=== PATIENT | male | born 1930 | race Caucasian/White ===

== ENCOUNTER → 2016-09-17 | Outpatient (CLI) | payer OTHER ==
[~2016-09-17] MED LIST: /AMLO25TA PO; /WARF25TA PO; ANEX7.5T PO; CALC500C2 PO; CLAR10CA3 PO; DRIS1CAP PO; ISOVUE-370 76% 100ML VIAL (Q9967) As Ordered ONE; LISI20TA3 PO; VITA10002 PO; folate PO
--- NOTE | 2016-09-17 15:13 | REP ---
CT STUDY OF THE SOFT TISSUES OF THE NECK WITH IV CONTRAST: HISTORY: Vocal cord and larynx polyp. CT contrast dose: 75 mL of Isovue [address] FINDINGS: There is a large mucous retention cyst in the right maxillary sinus. This measures 3.5 cm in greatest diameter. There is some mucosal thickening in the left sphenoid sinus. Carotid artery vascular calcification is noted. There are some missing maxillary and mandibular teeth. Periodontal radiolucent changes are seen in several mandibular teeth. No other bony destructive lesion is seen. There are degenerative changes in the cervical spine. There are scattered nonenlarged lymph nodes. A right submandibular lymph node is seen measuring 7 mm in short axis dimension. There is a right submandibular lymph node measuring 14 mm x 11 mm x 14 mm. This has a somewhat lucent center. Tongue base, floor of mouth structures are unremarkable. Submandibular and parotid glands are intact. Epiglottis and aryepiglottic folds are normal in appearance. There is some irregularity in the left true and false vocal cord consistent with polyp change. This should be correlated with endoscopic findings. No subglottic airway lesion is seen. The lung apices are clear with some apical pleuroparenchymal fibrosis and bullous change. There is no evidence of subhyoid adenopathy on either side. The thyroid lobes are small and thin but symmetric. Vascular calcifications noted. No other vascular abnormality is seen. IMPRESSION: 1. 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 2. Somewhat worrisome 1.4 cm right submandibular lymph node. Impaired dentition noted with periodontal radiolucency in the anterior and right mandible and in the anterior maxilla. 3. 3.5 cm mucous retention cyst in the right maxillary sinus. Signed by Shun dAair MD 09/17/2016 03:19 P
== END ==
LOC: M RAD 13:59
PROVIDERS: ATTEND Otolaryngology
DX: J38.1 Polyp of vocal cord and larynx (principal); R59.9 Enlarged lymph nodes, unspecified; J34.1 Cyst and mucocele of nose and nasal sinus
CPT/HCPCS: 70491; Q9967

== ENCOUNTER → 2016-10-07 | Outpatient (REF) | payer OTHER ==
[~2016-10-07] MED LIST changes: +AMLO10TA2 PO; +BUPR1TAB17 PO; +FERR32TA PO; +FOLI1TAB2 PO; -ISOVUE-370 76% 100ML VIAL (Q9967) As Ordered ONE; +LISI20TA PO; +LORA10TA2 PO; +VITA500T3 PO; +procrit IM
[2016-10-07 13:48] LABS: FOLATE > 24.0 NG/ML (>5.4); VITAMIN B12 LEVEL 757 PG/ML (247-911)
[2016-10-08 10:16] LABS: ERYTHROPOIETIN 31.8 mIU/mL (2.6-18.5)
== END ==
LOC: M LAB REF 12:22
PROVIDERS: ATTEND Internal Medicine Medical Oncology
DX: D64.9 Anemia, unspecified (principal)

== ENCOUNTER → 2016-10-14 | Day surgery (SDC) | payer OTHER ==
[~2016-10-14] VITALS: Ht 177.8 cm; Wt 63.5 kg
[~2016-10-14] MED LIST changes: +CEPACOL LOZENGE As Ordered ONE; +CEPACOL LOZENGE PO ONE; +EPINEPHrine 1MG/ML INJ 30ML MD-VIAL As Ordered ONE; +ETOMIDATE INJ 20MG/10ML VIAL As Ordered ONE; +GLYCOPYRROLATE INJ 0.2 MG/ML 2 ML VIAL As Ordered ONE; +LEVALBUTEROL 1.25 MG/0.5 ML CONCENTRATE NEB As Ordered ONE; +LEVALBUTEROL 1.25 MG/0.5 ML CONCENTRATE NEB INH ONE; +LIDOCAINE 2% INJ 100 MG/5 ML SDV (FOR ANES.) As Ordered ONE; +LR 1,000 ML IV ONE; +LR 1,000 ML IV SCH; +NEOSTIGMINE 1MG/ML 5 ML SYRINGE (J2710) As Ordered ONE; +ONDANSETRON 4MG/2ML VIAL (J2405) As Ordered ONE; +ONDANSETRON 4MG/2ML VIAL (J2405) IV PRN; +PROPOFOL 200 MG/20 ML VIAL As Ordered ONE; +ROCURONIUM BROMIDE 50 MG/5 ML VIAL As Ordered ONE; +dexameTHASONE 4 MG/ML 1ML VIAL (J1100) As Ordered ONE; +fentaNYL 100 MCG/2 ML INJECTION (J3010) As Ordered ONE; +fentaNYL 100 MCG/2 ML INJECTION (J3010) IV PRN
[2016-10-14 13:04] VITALS: BP 123/54
--- NOTE | 2016-10-16 12:10 | RO ---
DATE OF PROCEDURE: 10/14/2016 PREOPERATIVE DIAGNOSES: 1. Left laryngeal mass. 2. Carious tooth, lower mandibular sizer. POSTOPERATIVE DIAGNOSES: 1. Left laryngeal mass. 2. Carious tooth, lower mandibular incisor. PROCEDURE: 1. Extraction of mandibular incisor. 2. Direct laryngoscopy cervical esophagoscopy with biopsy of left vocal cord mass. SURGEON: Jake Griffin MD VARNISH INSPECTOR: ANESTHESIA: INDICATIONS: This is an 86-year-old that has been smoking all his life. He presents with increased . Office examination demonstrated what appeared to be a mass covering two-thirds of the left vocal fold extending up the vestibule to the false cord but not onto the false cord. Vocal cord mobility seemed to be present but perhaps somewhat sluggish. Because of smoking history, we suspect this was a neoplasm. DESCRIPTION OF PROCEDURE: Satisfactory general endotracheal anesthesia administered using a small endotracheal tube. Preparation for the endoscopy. He had a very loose carious tooth in the mandibular incisor area. This was grasped with an Allis clamp and removed very easily. This facilitated the endoscopy, a tooth protector was then placed over his remaining upper teeth. Double lighted Dedo laryngoscope was inserted in the oropharynx. Inspection of the oropharynx, hypopharynx, base of tongue, vallecula, piriform fossa was performed. No lesion was seen. The scope was then advanced to the glottic vestibule and then suspended with the Lewy apparatus. It was apparent there was an exophytic mass covering the left vocal fold superiorly extending on top of the cord into the glottic vestibule and ventricle. Several large biopsies were taken of this area. Bleeding was controlled with small pledgets of adrenaline placed on the vocal cord. Suspicion was this was a malignancy. With that in mind, cervical esophagoscope was prepared for inspection. The Dedo laryngoscope was removed after pictures were taken. Then, the cervical esophagoscope was lubricated and inserted in the postcricoid region and in the cervical esophagus. No lesions were found in the upper esophagus. Throat was suctioned. Patient was then awakened, extubated and sent to recovery room in satisfactory condition. He will be discharged home. Followup in the office within a week to discuss results.
== END | disposition home or self-care (01) ==
LOC: M SDC 08:50
PROVIDERS: ATTEND Specialist
DX: C32.8 Malignant neoplasm of overlapping sites of larynx (principal); K02.9 Dental caries, unspecified; I10 Essential (primary) hypertension; K21.9 Gastro-esophageal reflux disease without esophagitis; Z88.0 Allergy status to penicillin; D64.9 Anemia, unspecified; J44.9 Chronic obstructive pulmonary disease, unspecified; F17.210 Nicotine dependence, cigarettes, uncomplicated
CPT/HCPCS: 31535; 41899; 88300; 88305; J1100; J2405; J2710; J3010

== ENCOUNTER → 2016-11-11 | Outpatient (CLI) | payer OTHER ==
[~2016-11-11] MED LIST changes: -CEPACOL LOZENGE As Ordered ONE; -CEPACOL LOZENGE PO ONE; -EPINEPHrine 1MG/ML INJ 30ML MD-VIAL As Ordered ONE; -ETOMIDATE INJ 20MG/10ML VIAL As Ordered ONE; -GLYCOPYRROLATE INJ 0.2 MG/ML 2 ML VIAL As Ordered ONE; -LEVALBUTEROL 1.25 MG/0.5 ML CONCENTRATE NEB As Ordered ONE; -LEVALBUTEROL 1.25 MG/0.5 ML CONCENTRATE NEB INH ONE; -LIDOCAINE 2% INJ 100 MG/5 ML SDV (FOR ANES.) As Ordered ONE; -LR 1,000 ML IV ONE; -LR 1,000 ML IV SCH; -NEOSTIGMINE 1MG/ML 5 ML SYRINGE (J2710) As Ordered ONE; -ONDANSETRON 4MG/2ML VIAL (J2405) As Ordered ONE; -ONDANSETRON 4MG/2ML VIAL (J2405) IV PRN; -PROPOFOL 200 MG/20 ML VIAL As Ordered ONE; -ROCURONIUM BROMIDE 50 MG/5 ML VIAL As Ordered ONE; -dexameTHASONE 4 MG/ML 1ML VIAL (J1100) As Ordered ONE; -fentaNYL 100 MCG/2 ML INJECTION (J3010) As Ordered ONE; -fentaNYL 100 MCG/2 ML INJECTION (J3010) IV PRN
--- NOTE | 2016-11-20 17:03 | REP ---
Whole body PET / CT scan: Whole-body scanning is performed from skull base to the upper thighs. Comparison is the CT of the neck dated or 05/27/2017. Neck and supraclavicular. There is a hypermetabolic focus in the larynx in the area of the vocal cords. I cannot determine on the PET CT scan whether this is related to the right or the left focal cord. Maximal standard uptake value is 4.47, compatible with neoplasm. There are no other hypermetabolic foci in the neck or supraclavicular areas. Chest: There are no hypermetabolic foci. Abdomen, pelvis and upper thighs: There are no hypermetabolic foci. There is nonspecific bowel uptake. Impression: There is a single hypermetabolic focus in the vocal cords. There are no other hypermetabolic foci. The study is performed with 10 mCi of F 18 FDG Signed by Tad Eldridge MD 11/20/2016 04:54 P
== END ==
LOC: M PLARAD 09:25
PROVIDERS: ATTEND Internal Medicine Medical Oncology
DX: C76.0 Malignant neoplasm of head, face and neck (principal); C32.0 Malignant neoplasm of glottis
CPT/HCPCS: 78815; A9552

== ENCOUNTER → 2016-11-19 | Outpatient (CLI) | payer OTHER | LOC: M PLARAD 08:09 | PROVIDERS: ATTEND Internal Medicine Medical Oncology | DX: C32.0 Malignant neoplasm of glottis (principal) | CPT/HCPCS: 78815; A9552 ==

== ENCOUNTER → 2016-12-18 | Outpatient (CLI) | payer OTHER ==
[~2016-12-18] MED LIST changes: -BUPR1TAB17 PO; +BUPR1TAB53 PO; -FOLI1TAB2 PO; +FOLI1TAB4 PO
--- NOTE | 2016-12-18 15:01 | RADONC ---
RADIATION ONCOLOGY CONSULTATION NOTE DATE: 12/18/2016 CHART NUMBER: DIAGNOSIS: Glottic cancer. Mr. Tucker presented to us today having been referred to us by Dr. Griffin. 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 The patient came in today explaining that he does not wish to undergo radiation. He reports that at 86 years old he has to of something. He lives in [place] and does not have any intention of commuting on a daily basis for treatment over 7 weeks. In addition, the patient spoke of his who underwent radiation at a different center and had a horrific time following completion of treatment. He reported that her quality of life was ruined for the short remainder of her time on earth. In light of this, I did briefly explain the logistics of treatment planning, the benefits and side effects of treatment. I explained to him that the standard of care for glottic squamous cell carcinoma is radiation and that his cure rate would be exceedingly high should he choose to undergo treatment. Since the patient is refusing any consideration of treatment at this time, I have given him as a business card with our phone number on it. I have informed him that I am more than glad to see him at anytime should he change his mind. Once again, we are available to this very pleasant gentleman should he decide he wants to reconsider radiation. Mr. Tucker is a patient of Dr. Mojica, our medical oncologist, and has been discussing various other therapies. I will defer to Dr. Mojica's expertise, he is an excellent medical oncologist, and I am sure the patient is in good hands under his care. Once again in summary, the patient will continue being followed by Dr. Mojica as well as Dr. Griffin. He has been informed that we are more than glad to consider radiation in the future should he so desire. cc: MD Shruti Saravia MD
== END ==
LOC: M ONCR 13:06
PROVIDERS: ATTEND Radiology Radiation Oncology
DX: C32.0 Malignant neoplasm of glottis (principal)

== ENCOUNTER → 2017-01-13 | Outpatient (REF) | payer OTHER ==
[2017-01-13 16:09] LABS: THYROXINE (T4) 6.9 UG/DL (4.5-12.0)
== END ==
LOC: M LAB REF 13:08
PROVIDERS: ATTEND Internal Medicine Medical Oncology
DX: D53.9 Nutritional anemia, unspecified (principal)

== ENCOUNTER → 2017-03-09 | Outpatient (REF) | payer OTHER | LOC: M LAB REF 13:19 | PROVIDERS: ATTEND Internal Medicine Medical Oncology | DX: D46.9 Myelodysplastic syndrome, unspecified (principal); C32.0 Malignant neoplasm of glottis; Z79.899 Other long term (current) drug therapy ==

== ENCOUNTER → 2017-04-21 | Outpatient (REF) | payer OTHER ==
[2017-04-21 16:18] LABS: FREE T4 1.17 NG/DL (0.76-1.46)
== END ==
LOC: M LAB REF 15:36
PROVIDERS: ATTEND Internal Medicine Medical Oncology
DX: C32.9 Malignant neoplasm of larynx, unspecified (principal); D46.9 Myelodysplastic syndrome, unspecified; Z79.899 Other long term (current) drug therapy

== ENCOUNTER → 2017-05-06 | Outpatient (REF) | payer OTHER ==
[2017-05-06 20:29] LABS: FREE T4 1.08 NG/DL (0.76-1.46)
== END ==
LOC: M LAB REF 17:56
PROVIDERS: ATTEND Internal Medicine Medical Oncology
DX: D64.9 Anemia, unspecified (principal); C32.0 Malignant neoplasm of glottis; D46.9 Myelodysplastic syndrome, unspecified

== ENCOUNTER 2017-05-20 09:03 | Outpatient (CLI) | payer OTHER, MEDICARE ==
[~2017-05-20 09:03] MED LIST changes: +ACETAMINOPHEN TAB 650MG DOSE (2X325MG) PO SCH; +diphenhydrAMINE 25 MG CAP PO SCH
== END 2017-05-20 16:00 | disposition home or self-care (01) ==
LOC: M INFU 09:03
PROVIDERS: ATTEND Internal Medicine Medical Oncology
DX: D64.9 Anemia, unspecified (principal); D46.9 Myelodysplastic syndrome, unspecified; C32.0 Malignant neoplasm of glottis; Z72.0 Tobacco use; Z88.0 Allergy status to penicillin; Z79.899 Other long term (current) drug therapy
CPT/HCPCS: 36415; 36430; 86850; 86900; 86901; 86920; P9016

== ENCOUNTER → 2017-06-24 | Outpatient (REF) | payer OTHER, MEDICARE ==
[2017-06-24 15:16] LABS: FREE T4 1.08 NG/DL (0.76-1.46)
== END ==
LOC: M LAB REF 14:48
DX: D46.9 Myelodysplastic syndrome, unspecified (principal); C32.0 Malignant neoplasm of glottis
CPT/HCPCS: 84443

== ENCOUNTER → 2017-07-09 | Outpatient (REF) | payer OTHER, MEDICARE ==
[2017-07-09 21:18] LABS: FREE T4 1.03 NG/DL (0.76-1.46)
== END ==
LOC: M LAB REF 17:52
DX: D46.9 Myelodysplastic syndrome, unspecified (principal); C32.0 Malignant neoplasm of glottis; Z79.899 Other long term (current) drug therapy
CPT/HCPCS: 84443

== ENCOUNTER 2017-07-20 08:58 | Outpatient (CLI) | payer OTHER, MEDICARE ==
[2017-07-20 10:22] LABS: IMMEDIATE SPIN CROSSMATCH 1 2
[2017-07-20] MEDS ORDERED: diphenhydrAMINE 25 MG CAP As Ordered (10:22)
[2017-07-20] MEDS: diphenhydrAMINE 25 MG CAP PO (10:31)
[2017-07-20] MEDS: ACETAMINOPHEN TAB 650MG DOSE (2X325MG) PO (10:31)
== END 2017-07-20 14:45 | disposition home or self-care (01) ==
LOC: M INFU 08:58
DX: D64.9 Anemia, unspecified (principal); Z79.899 Other long term (current) drug therapy; Z88.0 Allergy status to penicillin
CPT/HCPCS: 36430

== ENCOUNTER → 2017-09-08 | Outpatient (CLI) | payer OTHER, MEDICARE | LOC: M PLARAD 10:57 | DX: C32.0 Malignant neoplasm of glottis (principal) | CPT/HCPCS: 78815 ==

== ENCOUNTER → 2017-09-11 | Outpatient (CLI) | payer OTHER, MEDICARE | LOC: M RAD 10:01 | DX: M79.661 Pain in right lower leg (principal); C32.0 Malignant neoplasm of glottis ==

== ENCOUNTER → 2017-09-17 | Outpatient (REF) | payer OTHER, MEDICARE ==
[2017-09-17 18:56] LABS: FREE T4 1.05 NG/DL (0.76-1.46)
== END ==
LOC: M LAB REF 17:32
DX: Z79.899 Other long term (current) drug therapy (principal)
CPT/HCPCS: 84443

== ENCOUNTER → 2017-10-06 | Outpatient (REF) | payer OTHER, MEDICARE | LOC: M LAB REF 13:06 | DX: D64.9 Anemia, unspecified (principal) | CPT/HCPCS: 86900 ==

== ENCOUNTER → 2017-10-15 | Outpatient (REF) | payer OTHER, MEDICARE ==
[2017-10-16 11:04] LABS: IMMEDIATE SPIN CROSSMATCH 1 2
== END ==
LOC: M LAB REF 16:37
DX: D64.9 Anemia, unspecified (principal)
CPT/HCPCS: 86900

== ENCOUNTER 2017-10-16 10:33 | Outpatient (CLI) | payer OTHER, MEDICARE ==
[2017-10-16] MEDS: ACETAMINOPHEN TAB 650MG DOSE (2X325MG) PO (11:04)
[2017-10-16] MEDS: diphenhydrAMINE 25 MG CAP PO (11:04)
== END 2017-10-16 15:00 | disposition home or self-care (01) ==
LOC: M INFU 10:33
DX: D64.9 Anemia, unspecified (principal); D46.9 Myelodysplastic syndrome, unspecified; I10 Essential (primary) hypertension; K21.9 Gastro-esophageal reflux disease without esophagitis; F17.210 Nicotine dependence, cigarettes, uncomplicated; Z88.0 Allergy status to penicillin
CPT/HCPCS: 36430

== ENCOUNTER → 2017-11-12 | Outpatient (REF) | payer OTHER, MEDICARE ==
[2017-11-12 18:23] LABS: FREE T4 1.04 NG/DL (0.76-1.46)
== END ==
LOC: M LAB REF 17:13
DX: C32.0 Malignant neoplasm of glottis (principal); Z79.899 Other long term (current) drug therapy; D46.1 Refractory anemia with ring sideroblasts; D53.9 Nutritional anemia, unspecified
CPT/HCPCS: 84443

== ENCOUNTER → 2017-11-26 | Outpatient (REF) | payer OTHER, MEDICARE ==
[2017-11-26 19:00] LABS: FREE T4 1.01 NG/DL (0.76-1.46)
== END ==
LOC: M LAB REF 17:34
DX: Z79.899 Other long term (current) drug therapy (principal); D53.9 Nutritional anemia, unspecified; D46.1 Refractory anemia with ring sideroblasts; C32.0 Malignant neoplasm of glottis
CPT/HCPCS: 84443

== ENCOUNTER → 2018-02-04 | Outpatient (REF) | payer OTHER, MEDICARE | LOC: M LAB REF 17:40 | DX: Z51.81 Encounter for therapeutic drug level monitoring (principal); Z79.899 Other long term (current) drug therapy; D53.9 Nutritional anemia, unspecified; D46.1 Refractory anemia with ring sideroblasts; C32.0 Malignant neoplasm of glottis | CPT/HCPCS: 84443 ==

== ENCOUNTER 2018-03-19 10:46 | Outpatient (CLI) | payer OTHER, MEDICARE ==
[2018-03-19] MEDS: ACETAMINOPHEN 325 MG TAB PO (11:00)
== END 2018-03-19 15:25 | disposition home or self-care (01) ==
LOC: M INFU 10:46
DX: D46.9 Myelodysplastic syndrome, unspecified (principal); C32.0 Malignant neoplasm of glottis; Z88.0 Allergy status to penicillin
CPT/HCPCS: 36430